=== PATIENT | male | born 1995 | race American Indian/Alaskan Native ===

== ENCOUNTER 2016-12-19 13:29 | Observation (INO) | payer BC, MEDICAID ==
[2016-12-19 13:44] VITALS: BMI 36.0
[2016-12-19 13:49] VITALS: RESP 18; TEMP 97.9
[2016-12-19] MEDS ORDERED: Sodium Chloride 0.9% 1,000 ML IV STA (13:55)
--- NOTE | 2016-12-19 13:59 | ED PDOC ---
Arrival/HPI - General Chief Complaint: Abdominal Pain Time Seen by Provider: 12/19/16 13:48 Historian: Patient - History of Present Illness Narrative History of Present Illness (Text): 12/19/16 13:56 21yo morbidly obese male present with 5days history of nonbilious/bloody vomiting with intermittent cramping abdominal pain. States the pain improved. Had an episode of vomiting today. States he came to ED because he feel weak and thinks his dehydrated. Reports sore throat that is currently improved. Denies fever, chills, diarrhea, constipation, hematemesis, hematochezia, melena, chest pain, cough, sick contact, travel. Past Medical History - Provider Review Nursing Documentation Reviewed: Yes - Infectious Disease Hx of Infectious Diseases: None - Tetanus Immunization Tetanus Immunization: Unknown - Past Medical History Past Medical History: No Previous - Gastrointestinal Hx Colitis: Yes (dx 03/03/15) - Psychiatric Hx Substance Use: No - Past Surgical History Past Surgical History: No Previous - Anesthesia Hx Anesthesia: No - Suicidal Assessment Feels Threatened In Home Enviroment: No Family/Social History - Physician Review Nursing Documentation Reviewed: Yes Family/Social History: Unknown Family HX Smoking Status: Heavy Smoker > 10 Cigarettes Daily Hx Alcohol Use: No Hx Substance Use: No Hx Substance Use Treatment: No Allergies/Home Meds Allergies/Adverse Reactions: Allergies peanuts Allergy (Uncoded 10/22/15 11:45) SWELLING Review of Systems - Physician Review All systems were reviewed & negative as marked: Yes - Review of Systems Constitutional: Normal Eyes: Normal ENT: Normal Respiratory: Normal Cardiovascular: Normal Gastrointestinal: Abdominal Pain, Nausea, Vomiting. absent: Constipation, Diarrhea, Hematochezia, Hematemesis Genitourinary Male: Normal Musculoskeletal: Normal Skin: Normal Neurological: Normal Endocrine: Normal Hemo/Lymphatic: Normal Psychiatric: Normal Physical Exam Vital Signs Reviewed: Yes Vital Signs Temp Pulse Resp BP Pulse Ox 12/19/16 13:29 97.9 F 92 H 18 149/88 100 Temperature: Afebrile Blood Pressure: Normal Pulse: Regular Respiratory Rate: Normal Appearance: Positive for: Well-Appearing, Non-Toxic, Comfortable Pain Distress: None Mental Status: Positive for: Alert and Oriented X 3 - Systems Exam Head: Present: Atraumatic, Normocephalic Pupils: Present: PERRL Extroacular Muscles: Present: EOMI Conjunctiva: Present: Normal Mouth: Present: Moist Mucous Membranes Pharnyx: Present: Normal. No: ERYTHEMA, EXUDATE, TONSILS ENLARGED, Peritonsilar Swelling, Uvular Deviation, Muffled/Hoarse Voice, Strider Neck: Present: Normal Range of Motion Respiratory/Chest: Present: Clear to Auscultation, Good Air Exchange. No: Respiratory Distress, Accessory Muscle Use Cardiovascular: Present: Regular Rate and Rhythm, Normal S1, S2. No: Murmurs Abdomen: Present: Normal Bowel Sounds, Other (Soft). No: Tenderness, Distention , Peritoneal Signs, Rebound, Guarding, McBurney's Point Tender, Rovsing's Sign Present Back: Present: Normal Inspection Upper Extremity: Present: Normal Inspection. No: Cyanosis, Edema Lower Extremity: Present: Normal Inspection. No: Edema Neurological: Present: GCS=15, CN II-XII Intact, Speech Normal Skin: Present: Warm, Dry, Normal Color. No: Rashes Psychiatric: Present: Alert, Oriented x 3, Normal Insight, Normal Concentration Medical Decision Making ED Course and Treatment: 12/19/16 19:49 PT presented for stated history. He have no abdominal tenderness on exam. Antiemesis was given. On re evaluation patient continue to complain of nausea and still declines abdominal pain. However leuckocytosis >19,000 was noted. He was given another antiememsis. Abdominal CT was ordered Abdominal CT Impression IMPRESSION: Patchy opacities in all visualized lobes, likely infectious or inflammatory in etiology. Findings consistent with mesenteric adenitis. No other acute abnormality. On further questioning patient declined cough. States he have nasal congestion. Antibiotics was given secondary to the CT finding and leuckocytosis. On on re evaluation he states he feels better. Denies nausea. He was DC home with Levaquin, Flagyl and Zofran. Referred to his PMD. TRT ED for any new or worsening symptoms. - Medication Orders Current Medication Orders: Discontinued Medications Famotidine (Pepcid) 20 mg IVP STAT STA Stop: 12/19/16 13:56 Last Admin: 12/19/16 14:40 Dose: 20 MG IVP Administration Document 12/19/16 14:40 [facility] (Rec: 12/19/16 14:45 [facility] [id number]) Charges for Administration # of IVP Administrations 1 Sodium Chloride (Sodium Chloride 0.9%) 1,000 mls @ 1,000 mls/hr IV .Q1H STA Stop: 12/19/16 14:54 Last Admin: 12/19/16 14:45 Dose: 1,000 MLS/HR eMAR Start Stop Document 12/19/16 14:45 [facility] (Rec: 12/19/16 14:46 [id number] Intravenous Solution Start Date 12/19/16 Start Time 14:40 End Date 12/19/16 End time 15:40 Total Infusion Time 60 Levofloxacin/Dextrose (Levaquin 500mg) 100 mls @ 100 mls/hr IVPB STAT STA Stop: 12/19/16 17:29 Last Admin: 12/19/16 17:19 Dose: 100 MLS/HR eMAR Start Stop Document 12/19/16 17:19 [facility] (Rec: 12/19/16 17:19 [id number][facility] Intravenous Solution Start Date 12/19/16 Start Time 17:19 End Date 12/19/16 End time 18:19 Total Infusion Time 60 Metoclopramide HCl (Reglan) 10 mg IVP STAT STA Stop: 12/19/16 17:08 Last Admin: 12/19/16 17:15 Dose: 10 MG IVP Administration Document 12/19/16 17:15 [facility] (Rec: 12/19/16 17:19 [id number][facility] Charges for Administration # of IVP Administrations 1 Ondansetron HCl (Zofran Inj) 4 mg IVP STAT STA Stop: 12/19/16 13:56 Last Admin: 12/19/16 14:46 Dose: 4 MG IVP Administration Document 12/19/16 14:46 [facility] (Rec: 12/19/16 14:47 [id number][facility] Charges for Administration # of IVP Administrations 1 Ondansetron HCl (Zofran Inj) 4 mg IVP STAT STA Stop: 12/19/16 15:53 Last Admin: 12/19/16 16:24 Dose: 4 MG IVP Administration Document 12/19/16 16:24 [facility] (Rec: 12/19/16 16:24 EQ [id number]) Charges for Administration # of IVP Administrations 1 Potassium Chloride (K-Dur 20 Meq Er Tab) 40 meq PO STAT STA Stop: 12/19/16 15:14 Last Admin: 12/19/16 15:30 Dose: 40 MEQ ED OBSERVATION Discharge: Yes Date of observation admission: 12/19/16 Time of observation admission: 13:30 - Observation admission statement Patient is being placed in observation because:: Lab ordered NS, Zofran, Pepcid ordered Will re evaluate - Goals of Observation Goals of observation are:: Lab ordered NS, Zofran, Pepcid ordered Will re evaluate Disposition/Present on Arrival - Present on Arrival Any Indicators Present on Arrival: No History of DVT/PE: No History of Uncontrolled Diabetes: No Urinary Catheter: No History of Decub. Ulcer: No History Surgical Site Infection Following: None - Disposition Have Diagnosis and Disposition been Completed?: Yes Diagnosis: Nausea and vomiting, Colitis, Pneumonia Disposition: HOME/ ROUTINE Disposition Time: 18:10 Patient Plan: Discharge Patient Problems: Current Active Problems Problem Status Diagnosed Colitis Acute Nausea and vomiting Acute Pneumonia Acute Condition: STABLE
[2016-12-19 14:48] LABS: ADD MANUAL DIFF? NO
[2016-12-19 15:03] LABS: BASO # 0.02 K/mm3 (0.0-2.0); BASO % 0.1 % (0.0-3.0); EOS % 0.2 % (1.5-5.0); GRAN # 17.01 (1.4-6.5); GRAN % 88.6 % (50.0-68.0); HEMATOCRIT 45.1 % (42.0-52.0); LYMPH # 1.1 (1.2-3.4); LYMPH % 5.6 % (22.0-35.0); MEAN CELL VOLUME 85.7 fL (80.0-105.0); MEAN CORPUSCULAR HEMOGLOBIN 29.8 pg (25.0-35.0); MEAN CORPUSCULAR HGB CONC 34.8 g/dl (31.0-37.0); MEAN PLATELET VOLUME 10.6 fl (7.0-11.0); MONO # 1.1 (0.1-0.6); MONO % 5.5 % (1.0-6.0); PLATELET COUNT 219 10^3/uL (120.0-450.0); RED CELL DISTRIBUTION WIDTH 12.7 % (11.5-14.5); WHITE BLOOD COUNT 19.2 10^3/ul (4.5-11.0)
[2016-12-19 15:07] LABS: ALB/GLOB RATIO 1.2 (1.1-1.8); ALKALINE PHOSPHATASE 55 U/L (38-133); ALT/SGPT 31 U/L (7-56); AST/SGOT 24 U/L (15-59); BILIRUBIN,TOTAL 0.8 mg/dL (0.2-1.3); BLOOD UREA NITROGEN 11 mg/dL (7-21); CALCIUM 9.6 mg/dL (8.4-10.5); CARBON DIOXIDE 30 mmol/L (21-33); CHLORIDE 100 mmol/L (98-107); GFR AFRICAN-AMERICAN > 60; GLUCOSE,RANDOM 101 mg/dL (70-110); LIPASE 28 U/L (23-300); POTASSIUM 3.1 mmol/L (3.6-5.0); SODIUM 142 mmol/L (132-148); TOTAL PROTEIN 8.4 g/dL (5.8-8.3)
[2016-12-19 15:09] LABS: INR 0.99 (0.93-1.08); PARTIAL THROMBOPLASTIN TIME 28.3 Seconds (23.7-30.8)
[2016-12-19] MEDS ORDERED: Potassium Chloride 20 mEq ER Tab PO STA (15:13)
[2016-12-19 15:35] LABS: URINE APPEARANCE SL CLOUDY (CLEAR); URINE BILIRUBIN NEGATIVE (NEGATIVE); URINE BLOOD LARGE (NEGATIVE); URINE COLOR YELLOW (YELLOW); URINE GLUCOSE (UA) NEGATIVE (NEGATIVE); URINE KETONE NEGATIVE (NEGATIVE); URINE LEUKOCYTE ESTERASE NEGATIVE Leu/uL (NEGATIVE); URINE PROTEIN NEGATIVE mg/dL (<30 mg/dL); URINE UROBILINOGEN 0.2 E.U./dL (<1 E.U./dL)
[2016-12-19 15:47] LABS: URINE BACTERIA MOD (NEG); URINE WBC 0 - 2 /hpf (0-6)
--- NOTE | 2016-12-19 15:56 | CT ---
PROCEDURE: CT Abdomen and Pelvis without intravenous contrast HISTORY: abdominal pain COMPARISON: 10/22/2015 TECHNIQUE: Without contrast.. Contrast Dose: 0 Radiation dose: Total exam DLP = 1543.91 mGy-cm. This CT exam was performed using one or more of the following dose reduction techniques: Automated exposure control, adjustment of the mA and/or kV according to patient size, and/or use of iterative reconstruction technique. FINDINGS: LOWER THORAX: There are patchy opacities in both lower and upper lobes and in the right middle lobe. This may be infectious or inflammatory in etiology. There is no pleural effusion. There is nonspecific elevation of the right hemidiaphragm, possibly eventration. This finding is unchanged when compared to examination of 10/22/2015. There is mild bilateral gynecomastia. LIVER: Unremarkable. No gross lesion or ductal dilatation. GALLBLADDER AND BILE DUCTS: Unremarkable. PANCREAS: Unremarkable. No gross lesion or ductal dilatation. SPLEEN: Unremarkable. ADRENALS: Unremarkable. No mass. KIDNEYS AND URETERS: Unremarkable. No hydronephrosis. No solid mass. VASCULATURE: Unremarkable. No aortic aneurysm. BOWEL: Scattered colonic diverticulae. No evidence of diverticulitis. No bowel obstruction APPENDIX: Unremarkable. Normal appendix. PERITONEUM: Unremarkable. No free fluid. No free air. LYMPH NODES: There is no retroperitoneal or pelvic lymphadenopathy. There are shotty subcentimeter lymph nodes medial to the cecum, and within the small bowel mesentery, consistent with mesenteric adenitis. . BLADDER: Unremarkable. REPRODUCTIVE: Normal prostate BONES: No acute fracture. OTHER FINDINGS: None. IMPRESSION: Patchy opacities in all visualized lobes, likely infectious or inflammatory in etiology. Findings consistent with mesenteric adenitis. No other acute abnormality.
--- NOTE | 2016-12-19 17:46 | RAD ---
HISTORY: flu symptoms COMPARISON: Lung bases on CT of the abdomen and pelvis without contrast performed earlier the same day. TECHNIQUE: Chest, one view. FINDINGS: Examination limited by habitus. LUNGS: Patchy opacity within the medial inferior aspect of the right upper lobe, may reflect pneumonia. Please note that chest x-ray has limited sensitivity for the detection of pulmonary masses. PLEURA: No significant pleural effusion identified. No definite pneumothorax . CARDIOVASCULAR: The cardiomediastinal silhouette appears within normal limits of size. OSSEOUS STRUCTURES: No acute osseous abnormality identified. VISUALIZED UPPER ABDOMEN: Elevation of the right hemidiaphragm. OTHER FINDINGS: None. IMPRESSION: Patchy opacities within the medial inferior aspect of the right upper lobe as well as the lingula clear pre pneumonia. These findings are better demonstrated on CT performed earlier the same day. Correlate clinically and recommend follow-up to ensure complete resolution.
[2016-12-19 20:31] VITALS: BP 148/74; PULSE 74; O2SAT 98
== END 2016-12-19 18:08 | disposition home or self-care (01) ==
LOC: ED 13:29 → EROBSV 13:30
PROVIDERS: ADMIT Emergency Medicine; ATTEND Emergency Medicine
DX: K52.9 Noninfective gastroenteritis and colitis, unspecified (principal); J18.9 Pneumonia, unspecified organism
CPT/HCPCS: 71010; 74176; 80053; 81001; 83690; 85025; 85610; 85730; 96361; 96365; 96375; 96376; 99284; G0378; J2405; J2765; J7040